=== PATIENT | female | born 1930 | race Caucasian/White ===

== ENCOUNTER → 2017-11-05 | Outpatient (CLI) | payer OTHER ==
[~2017-11-05] MED LIST: ACET-1693 PO; AZEL0.055 OP; BISA10SU5 RE; CHOL1000 PO; CLOP1TAB15 PO; CRAN405C3 PO; FORM1NEB INH; HYDR-5688 PO; LACT10SO3 PO; LEVO150T9 PO; LEVO75TA5 PO; MOML PO; MULT-506 PO; OXGN; PLMINSR5 INH; RANI150T85 PO; SENN8.6T36 PO; SODI1ENE RE; SPIRIVA INH
[2017-11-05 13:35] LABS: BASO % 0.2 %; BASO ABS # 0.02 K/uL (0-0.2); EOS % 3.8 %; EOS ABS # 0.36 K/uL (0-0.5); HEMATOCRIT 36.7 % (37-47); IG# 0.04 K/uL (0.00-0.02); LYMPH % 24.6 %; LYMPH ABS # 2.34 K/uL (1.2-3.4); MEAN CELL VOLUME 92.9 fL (80-100); MEAN CORPUSCULAR HEMOGLOBIN 30.4 pg (25-34); MEAN CORPUSCULAR HGB CONC 32.7 g/dl (32-36); MEAN PLATELET VOLUME 9.9 fL (7.4-10.4); MONO % 4.8 %; MONO ABS # 0.46 K/uL (0.11-0.59); NEUT % 66.2 %; NEUT ABS # 6.28 K/uL (1.4-6.5); PLATELET COUNT 310 K/uL (130-400); RED CELL DISTRIBUTION WIDTH CV 13.7 % (11.5-14.5); RED CELL DISTRIBUTION WIDTH SD 46.3 fL (36.4-46.3)
[2017-11-05 13:55] LABS: BLOOD UREA NITROGEN 45 mg/dl (7-18); CALCIUM 10.6 mg/dl (8.5-10.1); CARBON DIOXIDE 31 mmol/L (21-32); CREATININE 2.83 mg/dl (0.60-1.20); GLUCOSE 116 mg/dl (70-99); POTASSIUM 4.6 mmol/L (3.5-5.1); SODIUM 140 mmol/L (136-145)
--- NOTE | 2017-11-05 14:18 | DIAGNOSTIC IMAGING REPORT ---
KUB HISTORY: Preop. COMPARISON: KUB 09/30/2017. FINDINGS: The bowel gas pattern is unremarkable. There are no dilated loops of small bowel to suggest an obstruction. Moderate well-formed stool seen throughout the colon. Multiple left renal calculi remain unchanged. This includes a staghorn calculus within the lower pole which measures 2.5 cm. No left ureteral calculi. A right ureteral stent is unchanged in position. No change in the multiple right renal calculi. Dominant stone within the lower pole measures 1 cm. No definite ureteral calculi. Calcifications in the deep pelvis remain stable and therefore favor phleboliths. No pneumoperitoneum or pneumatosis. IMPRESSION: 1. Stable bilateral nephrolithiasis. 2. No definite ureteral calculi. 3. The right ureteral stent appears to be in good position. Electronically signed by: Erik Walker M.D. 11/05/2017 2:17 PM Dictated Date/Time: 11/05/2017 2:14 PM
== END | disposition home or self-care (01) ==
LOC: C.CPL 11:43
PROVIDERS: ATTEND Urology
DX: Z01.810 Encounter for preprocedural cardiovascular examination (principal); Z01.811 Encounter for preprocedural respiratory examination; Z01.812 Encounter for preprocedural laboratory examination; N20.0 Calculus of kidney

== ENCOUNTER 2017-11-24 08:04 | Day surgery (SDC) | payer OTHER ==
[2017-11-05 12:10] VITALS: Ht 149.9 cm; Wt 66.8 kg
--- NOTE | 2017-11-05 12:45 | PAT Medication Instructions ---
Service Date Nov 05, 2017. Current Home Medication List Acetaminophen Tab (Tylenol), 650 MG PO Q4H PRN for FEVER/PAIN Azelastine Hcl (Ophth) (Azelastine Hcl), 1 DROPS OP BID PRN for PRN Bisacodyl (Bisacodyl), 10 MG RE PRN Budesonide (Pulmicort Respules 0.5MG/2ML), 2 ML INH BID Cholecalciferol (Vitamin D3), 1 TAB PO QAM Clopidogrel (Plavix), 75 MG PO QAM Cranberry (Vaccinium Macrocarp (Cranberry), 400 MG PO QAM Formoterol Fumarate (Perforomist), 1 PUFF INH BID Home O2 Therapy (Oxygen), 2 LITERS NA CONT Hydrocodone/Acetaminophen 5MG/325MG ([place] 5MG/325MG), 1 TABLET PO Q4H PRN for IN Lactulose (Chronulac), 15 ML PO QAM Levothyroxine Sodium (Levothyroxine Sodium), 1 TAB PO FRIDAY Levothyroxine Sodium (Levothyroxine Sodium), 1 TAB PO 4XWEEK Magnesium Hydroxide (Milk Of Magnesia), 30 ML PO PRN Multivitamin (Multivitamin), 1 TAB PO QAM Ranitidine (Zantac), 75 MG PO HS Sennosides-Docusate Sodium (Docusate Sodium/Senna), 2 TAB PO AM/HS Sodium Phosphates (Fleet Enema Six Pack), 1 DOSE RE PRN [Spiriva], 1 PUFF INH QAM Medication Instructions For Your Scheduled Surgery -Check with the surgeon and public health professor for instructions for: Clopidogrel (Plavix), 75 MG PO QAM -Continue as direcetd: Home O2 Therapy (Oxygen), 2 LITERS NA CONT - Hold the following medications the morning of surgery: Bisacodyl (Bisacodyl), 10 MG RE PRN Cholecalciferol (Vitamin D3), 1 TAB PO QAM Cranberry (Vaccinium Macrocarp (Cranberry), 400 MG PO QAM Lactulose (Chronulac), 15 ML PO QAM Levothyroxine Sodium (Levothyroxine Sodium), 1 TAB PO FRIDAY Magnesium Hydroxide (Milk Of Magnesia), 30 ML PO PRN Multivitamin (Multivitamin), 1 TAB PO QAM - Take the following medications the morning of surgery with a sip of water: Acetaminophen Tab (Tylenol), 650 MG PO Q4H PRN for FEVER/PAIN (if needed, may be taken up to four hours before surgery) Azelastine Hcl (Ophth) (Azelastine Hcl), 1 DROPS OP BID PRN for PRN (if needed) Budesonide (Pulmicort Respules 0.5MG/2ML), 2 ML INH BID Formoterol Fumarate (Perforomist), 1 PUFF INH BID Hydrocodone/Acetaminophen 5MG/325MG ([place] 5MG/325MG), 1 TABLET PO Q4H PRN (if needed) Levothyroxine Sodium (Levothyroxine Sodium), 1 TAB PO 4XWEEK Sennosides-Docusate Sodium (Docusate Sodium/Senna), 2 TAB PO AM/HS Sodium Phosphates (Fleet Enema Six Pack), 1 DOSE RE PRN [Spiriva], 1 PUFF INH QAM - Take the following medications as scheduled the night before surgery: Acetaminophen Tab (Tylenol), 650 MG PO Q4H PRN for FEVER/PAIN (if needed) Azelastine Hcl (Ophth) (Azelastine Hcl), 1 DROPS OP BID PRN for PRN (if needed) Budesonide (Pulmicort Respules 0.5MG/2ML), 2 ML INH BID Formoterol Fumarate (Perforomist), 1 PUFF INH BID Hydrocodone/Acetaminophen 5MG/325MG ([place] 5MG/325MG), 1 TABLET PO Q4H PRN (if needed) Ranitidine (Zantac), 75 MG PO HS Sennosides-Docusate Sodium (Docusate Sodium/Senna), 2 TAB PO AM/HS Sodium Phosphates (Fleet Enema Six Pack), 1 DOSE RE PRN (if needed) If you have any questions please call us at [phone] or [phone] or [phone]
--- NOTE | 2017-11-18 07:18 | History & Physical Bridge Note ---
H&P Re-Evaluation Bridge Note: I have examined the patient, reviewed the History & Physical and in the interval since the performance of the History & Physical I have noted the following changes of clinical significance: No changes noted
[~2017-11-24] VITALS: Ht 149.9 cm; Wt 66.8 kg
[~2017-11-24 08:04] MED LIST changes: +ATROPINE SULFATE 0.1 MG/ML 5ML SYR IV PRN; +CIPROFLOXACIN / D5W 400 MG IV SCH; +DEXAMETHASONE SOD INJ 4 MG/ML VIAL ONE; +EpHEDrine SULFATE INJ 50 MG/ML AMP IV PRN; +FENTANYL CITRATE INJ 50 MCG/1 ML 2 ML VIAL IV PRN; +FENTANYL CITRATE INJ 50 MCG/1 ML 2 ML VIAL ONE; +LIDOCAINE HCL 2% 2 ML VIAL (20MG/ML) ONE; +MIDAZOLAM HCL 1 MG/ML 2ML VIAL ONE; +ONDANSETRON INJ 2 MG/ML 2 ML VIAL IV PRN; +ONDANSETRON INJ 2 MG/ML 2 ML VIAL ONE; +PROPOFOL IV EMULSION 10 MG/ML 20 ML VIAL ONE; +SODIUM CHLORIDE 0.9% 1000ML 1,000 ML IV SCH
[2017-11-24 08:40] VITALS: BP 199/69; PULSE 82; TEMP 36.6; O2SAT 100
[2017-11-24] MEDS ORDERED: FENTANYL CITRATE INJ 50 MCG/1 ML 2 ML VIAL ONE (08:59)
[2017-11-24] MEDS ORDERED: LIDOCAINE HCL 2% 2 ML VIAL (20MG/ML) ONE (08:59)
[2017-11-24] MEDS ORDERED: PROPOFOL IV EMULSION 10 MG/ML 20 ML VIAL ONE (08:59)
[2017-11-24] MEDS ORDERED: Cysto-Conray II 17.2% 250ML BOTTLE ONE (09:08)
[2017-11-24 09:09] LABS: CALCIUM 9.9 mg/dl (8.5-10.1); CREATININE 2.69 mg/dl (0.60-1.20); POTASSIUM 4.7 mmol/L (3.5-5.1)
[2017-11-24] MEDS ORDERED: PHENYLEPHRINE 100MCG/ML 5ML SYR ONE (09:30)
--- NOTE | 2017-11-24 09:48 | DIAGNOSTIC IMAGING REPORT ---
INTRAOPERATIVE RADIOGRAPHS CLINICAL HISTORY: Right ureteral stent exchange. Fluoroscopy time: 20 seconds. FINDINGS: 2 spot fluoroscopic images of the right abdomen from a ureteral stent exchange procedure are presented. There is mild right-sided hydronephrosis. Both images show a right ureteral stent being deployed. This projects over the right renal pelvis. IMPRESSION: Intraoperative images from a right ureteral stent exchange procedure as above. See operative report for detailed findings. Electronically signed by: Bernabe Merritt M.D. 11/24/2017 9:46 AM Dictated Date/Time: 11/24/2017 9:46 AM
--- NOTE | 2017-11-24 09:48 | [facility] Operative Report ---
Operative Report Operative Date Nov 24, 2017. Pre-Operative Diagnosis Obstructed right kidney Post-Operative Diagnosis Same as preop Procedure(s) Performed Cystoscopy, right ureteroscopy, right stent exchange Surgeon Dr. Gallardo [employer] Surgeon(s) none Estimated Blood Loss 0 ml Findings Cystoscopic exam revealed a normal urethra bladder showed edema from the previously placed stent there was some mild hydronephrosis on the right Specimens none, as per surgeon Drains 6 [place] by 24 cm right ureteral stent Anesthesia Type MAC Complication(s) none Disposition yes Recovery Room / PACU Indications 87-year-old white female who had a stent placed elsewhere for right ureteral obstruction secondary to nephrolithiasis she is being brought in for stent change Description of Procedure After the induction of an adequate level of intravenous sedation and appropriate timeout patient was placed in the dorsal lithotomy position. Lower abdomen and genitalia were prepped with Hibiclens and draped in a sterile fashion. Using a 22 [place] cystoscope routine cystoscopic exam was performed with the above-noted findings with 30 and 70 lenses. Next the previously placed right ureteral stent was grasped with graspers and brought out through the meatus. Under fluoroscopic guidance a 0.03 guidewire was passed up through the stent up the right ureter to position the renal pelvis the stent was removed a 5 [place] open-ended catheter was passed over the stent the wire was removed and a retrograde pyelogram was performed confirming the position in the renal pelvis guidewire was then rethreaded to the open-ended catheter which was removed and then rethreaded to the cystoscope and then under fluoroscopic guidance a 6 [place] by 24 cm stent was passed up the right ureter to position the renal pelvis guidewire was removed there was good curl at the bladder level. Patient's bladder was drained. All needle sponge and some counts are correct at the end of the case. Patient tolerated the procedure well was taken to recovery room in stable condition I attest to the content of the Intraoperative Record and any orders documented therein. Any exceptions are noted below.
--- NOTE | 2017-11-24 09:50 | Discharge Instructions ---
Discharge Instructions Date of Service Nov 24, 2017. Visit Reason for Visit: STONE with obstructed right ureter Discharge Discharge Diagnosis / Problem: Stones obstructed right ureter Discharge Goals Goal(s): Therapeutic intervention Activity Recommendations Activity Limitations: per Instructions/Follow-up section Exercise/Sports Limitations: rest today Shower/Bathe: no limitations Anesthesia . Post Anesthesia Instructions: If you have had General Anesthesia or IV Sedation: * Do not drive today. * Resume driving when surgeon permits. * Do not make important decisions or sign legal documents today. * Call surgeon for: 1. Temperature elevations greater than 101 degrees F. 2. Uncontrollable pain. 3. Excessive bleeding. 4. Persistent nausea and vomiting. 5. Medication intolerance (nausea, vomiting or rash). * For nausea and vomiting use only clear liquids such as: tea, soda, bouillon until nausea subsides, then gradually increase diet as tolerated. * If you have any concerns or questions, call your surgeon's office. If physician is unavailable and it is an emergency, call 911 or go to the nearest emergency room. . Diet Recommendations Recommended Home Diet: resume previous diet Procedures Procedures Performed: Cystoscopy, right ureteroscopy, right stent exchange Pending Studies Studies pending at discharge: no Medical Emergencies . Who to Call and When: Medical Emergencies: If at any time you feel your situation is an emergency, please call 911 immediately. . Non-Emergent Contact Non-Emergency issues call your: Urologist Call Non-Emergent contact if: temperature is above 101.5, your pain is not controlled . . "Provider Documentation" section prepared by Rene Cornejo. .
[2017-11-24] MEDS ORDERED: OXYCODONE/ACETAMINOPHEN 5-325 TAB PO PRN (10:00)
--- NOTE | 2017-11-24 10:07 | Anesthesiology Progress Note ---
Anesthesia Post Op Note Date & Time Nov 24, 2017 at 10:07 Vital Signs Pain Intensity: 0 Vital Signs Past 12 Hours Date Time Temp Pulse Resp B/P (MAP) Pulse Ox O2 Delivery O2 Flow Rate FiO2 11/24/17 10:00 36.3 77 18 149/64 97 Nasal Cannula 2 11/24/17 09:50 88 18 140/60 95 Nasal Cannula 2 11/24/17 09:44 36.1 75 18 118/45 98 Nasal Cannula 2 11/24/17 08:40 36.6 82 18 199/69 (112) 100 Nasal Cannula 2 Notes Mental Status: alert / awake / arousable, participated in evaluation Pt Amnestic to Procedure: Yes Nausea / Vomiting: adequately controlled Pain: adequately controlled Airway Patency, RR, SpO2: stable & adequate BP & HR: stable & adequate Hydration State: stable & adequate Anesthetic Complications: no major complications apparent
[2017-11-24 10:15] VITALS: BP 146/59; PULSE 78; TEMP 36.3; O2SAT 99
[2017-11-24] MEDS ORDERED: ATROPINE SULFATE 0.1 MG/ML 5ML SYR IV PRN (10:15)
[2017-11-24] MEDS ORDERED: FENTANYL CITRATE INJ 50 MCG/1 ML 2 ML VIAL IV PRN (10:15)
[2017-11-24] MEDS ORDERED: ONDANSETRON INJ 2 MG/ML 2 ML VIAL IV PRN (10:15)
[2017-11-24 10:35] VITALS: BP 126/63; PULSE 70; TEMP 36.3; O2SAT 99
== END 2017-11-24 11:00 ==
LOC: C.ACU 08:04
PROVIDERS: ATTEND Urology
DX: N13.2 Hydronephrosis with renal and ureteral calculous obstruction (principal); J44.9 Chronic obstructive pulmonary disease, unspecified; I12.9 Hypertensive chronic kidney disease with stage 1 through stage 4 chronic kidney disease, or unspecified chronic kidney disease; N18.9 Chronic kidney disease, unspecified; M10.9 Gout, unspecified; M19.90 Unspecified osteoarthritis, unspecified site; Z99.81 Dependence on supplemental oxygen; Z87.442 Personal history of urinary calculi; Z85.42 Personal history of malignant neoplasm of other parts of uterus; Z88.0 Allergy status to penicillin; Z91.040 Latex allergy status; Z90.49 Acquired absence of other specified parts of digestive tract; Z87.891 Personal history of nicotine dependence